=== PATIENT | female | born 1940 | race Caucasian/White ===

== ENCOUNTER 2019-07-01 11:27 | Emergency (ER) | payer OTHER, MEDICARE ==
[2019-07-01] MEDS ORDERED: IPRATROPIUM BROM 0.5MG/2.5ML ONE (13:24)
[2019-07-01] MEDS ORDERED: LEVALBUTEROL 1.25 MG/3 ML NEB ONE (13:24)
[2019-07-01] MEDS ORDERED: METHYLPREDNISOLONE 125 MG INJ ONE (13:24)
--- NOTE | 2019-07-01 15:00 | EDPHYS ---
Physician Documentation [facility] Name: Janak Ventura Age: 79 yrs Sex: Female : 1940 Arrival Date: 07/01/2019 Time: 11:27 Bed 19 Private MD: Celeste Oseguera C ED Physician Ramy De Luna HPI: 07/01 15:05 This 79 yrs old Female presents to ER via Ambulatory with complaints of kb Fever, Bronchitis. 15:05 The patient or guardian reports cough, that is intermittent, described as moderate, kb with productive sputum, flu symptoms, low-grade fever. Onset: The symptoms/episode began/occurred yesterday. Severity of symptoms: At their worst the symptoms were mild, moderate, in the emergency department the symptoms are unchanged. Modifying factors: The symptoms are alleviated by nothing, the symptoms are aggravated by nothing. Associated signs and symptoms: Pertinent positives: fever, Pertinent negatives: chest pain, diarrhea, ear ache, nausea, rhinorrhea, sore throat, vomiting. The patient has not experienced similar symptoms in the past, but family has similar symptoms, spouse. The patient has not recently seen a physician. PT reports spouse was diagnosed with bronchitis 2 days ago and now she has the same symptoms. . Historical: - Allergies: 11:47 Compazine; ss 11:47 Dilaudid; ss 11:47 Flagyl; ss 11:47 Oral steroids; ss - PMHx: 11:47 Hypertension; Hypothyroidism; ss - Immunization history:: Adult Immunizations up to date. - Social history:: Smoking status: Patient uses tobacco products, smokes one-half pack cigarettes per day. - Ebola Screening: : Patient denies exposure to infectious person Patient denies travel to an Ebola-affected area in the 21 days before illness onset. ROS: 15:02 Neck: Negative for injury, pain, and swelling, Cardiovascular: Negative for chest pain, kb palpitations, and edema, Abdomen/GI: Negative for abdominal pain, nausea, vomiting, diarrhea, and constipation, Back: Negative for injury and pain, : Negative for injury, bleeding, discharge, and swelling, MS/Extremity: Negative for injury and deformity, Skin: Negative for injury, rash, and discoloration, Neuro: Negative for headache, weakness, numbness, tingling, and seizure. 15:02 Constitutional: Positive for chills, fever. 15:02 Respiratory: Positive for cough, Negative for dyspnea on exertion, hemoptysis, orthopnea, pleurisy, shortness of breath, sputum production, wheezing. Exam: 15:05 Constitutional: This is a well developed, well nourished patient who is awake, alert, kb and in no acute distress. Head/Face: Normocephalic, atraumatic. Chest/axilla: Normal chest wall appearance and motion. Nontender with no deformity. No lesions are appreciated. Cardiovascular: Regular rate and rhythm with a normal S1 and S2. No gallops, murmurs, or rubs. Normal PMI, no JVD. No pulse deficits. Abdomen/GI: Soft, non-tender, with normal bowel sounds. No distension or tympany. No guarding or rebound. No evidence of tenderness throughout. Back: No spinal tenderness. No costovertebral tenderness. Full range of motion. Skin: Warm, dry with normal turgor. Normal color with no rashes, no lesions, and no evidence of cellulitis. MS/ Extremity: Pulses equal, no cyanosis. Neurovascular intact. Full, normal range of motion. Neuro: Awake and alert, GCS 15, oriented to person, place, time, and situation. Cranial nerves II-XII grossly intact. Motor strength 5/5 in all extremities. Sensory grossly intact. Cerebellar exam normal. Normal gait. 15:05 Respiratory: the patient does not display signs of respiratory distress, Respirations: normal, Breath sounds: rhonchi, that are mild, are scattered, clears after cough. Vital Signs: 11:47 BP 174 / 75; Pulse 100; Resp 18; Temp 98.8(O); Pulse Ox 98% on R/A; Weight 68.95 kg; ss Height 5 ft. 4 in. (162.56 cm); Pain 9/10; 14:00 BP 147 / 70; Pulse 121; Resp 18; Pulse Ox 100% on R/A; mg2 15:08 BP 139 / 85; Pulse 110; Resp 18; Temp 98.5(O); Pulse Ox 100% on R/A; mg2 11:47 Body Mass Index 26.09 (68.95 kg, 162.56 cm) MDM: 13:00 Patient medically screened. [facility] 15:02 Data reviewed: vital signs, nurses notes. Data interpreted: Pulse oximetry: on room air kb is 100 %. Interpretation: normal. Counseling: I had a detailed discussion with the patient and/or guardian regarding: the historical points, exam findings, and any diagnostic results supporting the discharge/admit diagnosis, lab results, radiology results, the need for outpatient follow up, a family practitioner, to return to the emergency department if symptoms worsen or persist or if there are any questions or concerns that arise at home. 07/01 11:51 Order name: Flu; Complete Time: 13:36 kb 07/01 11:47 Order name: Chest Pa And Lat (2 Views) XRAY kb Administered Medications: 13:37 Drug: Xopenex (3) 1.25 mg Route: Inhalation; mg2 14:55 Follow up: Response: No adverse reaction; Marked relief of symptoms mg2 13:37 Drug: AtroVENT Aerosol 0.5 mg Route: Inhalation; mg2 14:55 Follow up: Response: No adverse reaction; Marked relief of symptoms mg2 13:37 Drug: SOLU-Medrol 125 mg Route: IM; Site: right gluteus; mg2 14:55 Follow up: Response: No adverse reaction; Marked relief of symptoms mg2 Disposition: 07/01/19 14:59 Discharged to Home. Impression: Acute bronchitis. - Condition is Stable. - Discharge Instructions: Acute Bronchitis, [id number]. - Prescriptions for Guaifenesin- DM 10-100 mg/5 mL Oral Liquid - take 5 milliliter by ORAL route every 8 hours As needed as needed; 60 milliliter. Albuterol Sulfate 90 mcg/actuation - inhale 1-2 puff by INHALATION route every 4-6 hours; 1 Inhaler. - Medication Reconciliation Form, Thank You Letter, Antibiotic Education, Prescription Opioid Use form. - Follow up: Emergency Department; When: As needed; Reason: Worsening of condition. Follow up: Private Physician; When: 2 - 3 days; Reason: Recheck today's complaints, Continuance of care, Re-evaluation by your physician. Addendum: 07/03/2019 07:52 Co-signature as Attending Physician, Ramy De Luna MD I agree with the assessment and c gilbert plan of care. Signatures: Dispatcher [employer] Melyssa Jaimes, LAUREN-C LAUREN-Ramy Leigh MD MD cha Smirch, Shelby, RN RN ss Gardose, Baljeet, RN RN mg2 Corrections: (The following items were deleted from the chart) 07/01 15:09 14:59 07/01/2019 14:59 Discharged to Home. Impression: Acute bronchitis. Condition is mg2 Stable. Forms are Medication Reconciliation Form, Thank You Letter, Antibiotic Education, Prescription Opioid Use. Follow up: Emergency Department; When: As needed; Reason: Worsening of condition. Follow up: Private Physician; When: 2 - 3 days; Reason: Recheck today's complaints, Continuance of care, Re-evaluation by your physician. kb
--- NOTE | 2019-07-01 15:00 | ER ---
Nurse's Notes [facility] Name: Janak Ventura Age: 79 yrs Sex: Female : 1940 Arrival Date: 07/01/2019 Time: 11:27 Bed 19 Private MD: Celeste Oseguera C Diagnosis: Acute bronchitis Presentation: 07/01 11:46 Presenting complaint: Patient states: cough and congestion that began last night with ss chills. Transition of care: patient was not received from another setting of care. Onset of symptoms was June 30, 2019. Risk Assessment: Do you want to hurt yourself or someone else? Patient reports no desire to harm self or others. Initial Sepsis Screen: Does the patient meet any 2 criteria? No. Patient's initial sepsis screen is negative. Does the patient have a suspected source of infection? No. Patient's initial sepsis screen is negative. Care prior to arrival: None. 11:46 Method Of Arrival: Ambulatory ss 11:46 Acuity: PAIGE 3 ss Historical: - Allergies: 11:47 Compazine; ss 11:47 Dilaudid; ss 11:47 Flagyl; ss 11:47 Oral steroids; ss - PMHx: 11:47 Hypertension; Hypothyroidism; ss - Immunization history:: Adult Immunizations up to date. - Social history:: Smoking status: Patient uses tobacco products, smokes one-half pack cigarettes per day. - Ebola Screening: : Patient denies exposure to infectious person Patient denies travel to an Ebola-affected area in the 21 days before illness onset. Screenin:05 Abuse screen: Denies threats or abuse. Denies injuries from another. Nutritional mg2 screening: No deficits noted. Tuberculosis screening: No symptoms or risk factors identified. Fall Risk None identified. Assessment: 14:01 General: Appears in no apparent distress. comfortable, Behavior is calm, cooperative. mg2 Pain: Denies pain. Neuro: Level of Consciousness is awake, alert, obeys commands, Oriented to person, place, time, situation. Cardiovascular: Capillary refill < 3 seconds Patient's skin is warm and dry. Respiratory: Reports cough that is productive, congestion Airway is patent Respiratory effort is even, unlabored, Respiratory pattern is regular, symmetrical. GI: No signs and/or symptoms were reported involving the gastrointestinal system. : No signs and/or symptoms were reported regarding the genitourinary system. EENT: No signs and/or symptoms were reported regarding the EENT system. Derm: Skin is intact, is healthy with good turgor, Skin is pink, warm \T\ dry. normal. Musculoskeletal: Circulation, motion, and sensation intact. Capillary refill < 3 seconds. 15:08 Reassessment: Patient appears in no apparent distress at this time. Patient states mg2 feeling better. Vital Signs: 11:47 BP 174 / 75; Pulse 100; Resp 18; Temp 98.8(O); Pulse Ox 98% on R/A; Weight 68.95 kg; ss Height 5 ft. 4 in. (162.56 cm); Pain 9/10; 14:00 BP 147 / 70; Pulse 121; Resp 18; Pulse Ox 100% on R/A; mg2 15:08 BP 139 / 85; Pulse 110; Resp 18; Temp 98.5(O); Pulse Ox 100% on R/A; mg2 11:47 Body Mass Index 26.09 (68.95 kg, 162.56 cm) ED Course: 11:27 Patient arrived in ED. as 11:29 Celeste Oseguera MD is Private Physician. as 11:46 Triage completed. ss 11:47 Arm band placed on right wrist. ss 11:51 Melyssa Pablo FNP-C is [facility]. kb 11:51 Ramy De Luna MD is Attending Physician. kb 12:59 Baljeet Crockett RN is Primary Nurse. mg2 14:10 Patient has correct armband on for positive identification. Pulse ox on. NIBP on. Door mg2 closed. 14:10 No provider procedures requiring assistance completed. Patient did not have IV access mg2 during this emergency room visit. 14:29 Chest Pa And Lat (2 Views) XRAY In Process Unspecified. EDMS Administered Medications: 13:37 Drug: Xopenex (3) 1.25 mg Route: Inhalation; mg2 14:55 Follow up: Response: No adverse reaction; Marked relief of symptoms mg2 13:37 Drug: AtroVENT Aerosol 0.5 mg Route: Inhalation; mg2 14:55 Follow up: Response: No adverse reaction; Marked relief of symptoms mg2 13:37 Drug: SOLU-Medrol 125 mg Route: IM; Site: right gluteus; mg2 14:55 Follow up: Response: No adverse reaction; Marked relief of symptoms mg2 Outcome: 14:59 Discharge ordered by MD. cartagena 15:09 Discharged to home ambulatory, with family. mg2 15:09 Condition: stable 15:09 Discharge instructions given to patient, family, Instructed on discharge instructions, follow up and referral plans. medication usage, Demonstrated understanding of instructions, follow-up care, medications, Prescriptions given X 2. 15:09 Patient left the ED. mg2 Signatures: Dispatcher [employer] EDMS Melyssa Pablo, LAUREN-C LAUREN-Emma Lee Shelby, DORENE RN Baljeet Crockett RN RN mg2
[2019-07-01 15:34] VITALS: O2SAT 100
[2019-07-01 15:35] VITALS: BP 139/85; TEMP 98.5
--- NOTE | 2019-07-02 13:06 | RAD REPORT ---
EXAM DESCRIPTION: Bear Hernandez (2 Views)07/01/2019 7:18 pm CLINICAL HISTORY: Cough COMPARISON: 2017 FINDINGS: Calcified granulomas right lung The lungs appear clear of acute infiltrate. The heart is normal size IMPRESSION: No acute abnormalities displayed
== END 2019-07-01 15:09 | disposition home or self-care (01) ==
LOC: ER 11:27
DX: J20.9 Acute bronchitis, unspecified (principal); F17.210 Nicotine dependence, cigarettes, uncomplicated; I10 Essential (primary) hypertension; Z88.5 Allergy status to narcotic agent; Z88.6 Allergy status to analgesic agent; Z88.8 Allergy status to other drugs, medicaments and biological substances
CPT/HCPCS: 87804 ×2; 71046; 96372; 99284; J2930

== ENCOUNTER 2022-01-12 11:19 | Emergency (ER) | payer OTHER, MEDICARE ==
--- OUTSIDE RECORDS SUMMARY | 2022-01-12 11:22 | XMS REPORT | Continuity of Care Document ---
:1940 Author Organization [facility] t Address [address] [place] [address] Care Team Providers Name Role Phone PCP, DOES NOT HAVE A Primary Care Physician Unavailable PHUONG NICOLE Attending Clinician Unavailable Phuong Nicole MD Attending Clinician Payers Payer Name Policy Type Policy Number Effective Date Expiration Date S ourazael MEDICARE PART A \T\ [id number] 2005 B 00:00:00 [facility] [id number] 2021 MEDICARE SUPPLEMENT 00:00:00 Problems Condition Condition Condition Status Onset Resolution Last Treating Co mments Source Name Details Category Date Date Treatment Clinician Date 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 2-18 ity of 00:00: [place] 00 [facility] Allergies, Adverse Reactions, Alerts Allergy Allergy Status Severity Reaction(s) Onset Inactive Treating Comm ents Source Name Type Date Date Clinician Hydromor Propensi Active Other - See 0 Seizure Univers phone ty to comments 2-18 ity of adverse 00:00: [place] reaction 00 [facility] s [place] HYDROMOR DRUG Active Other-Cmnt 0 Univ ers PHONE INGREDI 2-18 ity of 00:00: [place] 00 [facility] Social History Social Habit Start Date Stop Date Quantity Comments Source History of tobacco Cigarette Smoker University of use [facility] Exposure to Not sure University of SARS-CoV-2 (event) [facility] Alcohol intake 2021-12-13 2021-12-13 Lifetime University of 00:00:00 00:00:00 non-drinker [facility] (finding) Branch Cigarettes smoked 2021-11-15 2021-11-15 Univers ity of current (pack per 00:00:00 00:00:00 ) - Reported Branch Cigarette 2021-11-15 2021-11-15 University of pack-years 00:00:00 00:00:00 [facility] Tobacco use and 2021-11-15 2021-11-15 Never used Universit y of exposure 00:00:00 00:00:00 [facility] Sex Ass[birth year] At [birth year] Universit y of 00:00:00 00:00:00 [facility] Smoking Status Start Date Stop Date Source Current every day smoker 2021-11-15 00:00:00 Uni versity of [facility] Medications Ordered Filled Start Stop Current Ordering Indication Dosage Frequency Signature Comments Components Source Medication Medication Date Date Medication? Clinician (SIG) Name Name estradiol Yes Apply to Uni vers (CLIMARA 3-18 skin. ity of TRANSDERMAL 12:41: [place] ) 13 Medical Branch estradioL Yes [id number] 1g Insert 1 g Univers 0.01 % (0.1 2-18 into ity of mg/gram) [facility] Medical cream Branch BYSTOLIC 5 Yes 5mg Take 5 mg Un gavi mg tablet 1-26 by mouth ity of 00:00: every 00 morning. Medical Branch SYNTHROID Yes Univers 100 mcg 1-05 ity of tablet 00:00: [place] 00 Medical Branch clotrimazol 2020-09 Yes APPLY TO Un gavi e-betametha 2-13 THE ity of sone cream 00:[place] ARE[place] THREE Medical TO FOUR Branch TIMES DAILY FOR 7 DAYS Immunizations Ordered Filled Immunization Date Status Comments Sourc e Immunization Name Name SARS-COV-2 COVID-19 2021-05-24 Completed Unive rsity of MODERNA VACCINE 00:00:00 [facility] SARS-COV-2 COVID-19 2020-11-06 Completed Unive rsity of MODERNA VACCINE 00:00:00 [facility] SARS-COV-2 COVID-19 2020-10-10 Completed Unive rsity of MODERNA VACCINE 00:00:00 [facility] Vital Signs Vital Name Observation Time Observation Value Comments Source Systolic blood 2021-12-13 19:14:00 143 mm[Hg] Univer sity of pressure [facility] Diastolic blood 2021-12-13 19:14:00 82 mm[Hg] Unive rsity of pressure [facility] Heart rate 2021-12-13 16:45:00 72 /min [facility] Body temperature 2021-12-13 16:45:00 36.72 [facility] 2021-12-13 16:45:00 18 /min [facility] Body height 2021-12-13 16:45:00 165.1 cm [facility] Body weight 2021-12-13 16:45:00 69.037 kg [facility] BMI 2021-12-13 16:45:00 25.33 kg/m2 [facility] Procedures This patient has no known procedures. Encounters Start End Encounter Admission Attending Care Care Encounter Source Date/Time Date/Time Type Type Clinicians Facility Department ID 2022-01-01 2022-01-01 Outpatient R BILLIE NICOLE [facility] [id number] [facility] 13:15:00 13:15:00 ity [facility] 2021-12-13 2021-12-13 Office Billie Nicole [facility]IDON [facility]AD[facility] [id number] Univers 11:15:00 12:07:13 Visit Phuong ANAYA [id number] it y of WOMEN'S [id number] [facility] [id number] [place] [id number] Branch 2021-12-13 2021-12-13 Outpatient R BILLIE NICOLE [facility] [id number] [facility] 11:15:00 [facility] Results This patient has no known results.
[2022-01-12 14:36] LABS: Urine Blood 2+ (Negative); Urine Glucose Negative (Negative); Urine Protein Negative (Negative); Urine Specific Gravity <=1.005 (1.005-1.030); Urine pH 5.5 (5.0-7.0)
--- NOTE | 2022-01-12 14:43 | ER ---
Nurse's Notes [facility] Name: Janak Ventura Age: 81 yrs Sex: Female : 1940 Arrival Date: 01/12/2022 Time: 11:22 Bed Waiting Private MD: Diagnosis: UTI/ Urinary tract infection, site not specified Presentation: 01/12 14:37 Chief complaint: Patient states: burning and pain with urination x 1 day. Coronavirus jl7 screen: At this time, the client does not indicate any symptoms associated with coronavirus-19. Ebola Screen: No symptoms or risks identified at this time. Initial Sepsis Screen: Does the patient meet any 2 criteria? No. Patient's initial sepsis screen is negative. Does the patient have a suspected source of infection? No. Patient's initial sepsis screen is negative. Risk Assessment: Do you want to hurt yourself or someone else? Patient reports no desire to harm self or others. Onset of symptoms was January 11, 2022. 14:37 Method Of Arrival: Ambulatory [facility] 14:37 Acuity: PAIGE 3 jl7 Triage Assessment: 14:39 General: Appears in no apparent distress. uncomfortable, Behavior is calm, cooperative, jl7 appropriate for age. Pain: Complains of pain in pelvis Pain currently is 10 out of 10 on a pain scale. Neuro: Level of Consciousness is awake, alert, obeys commands, Oriented to person, place, time, situation. Cardiovascular: Patient's skin is warm and dry. Respiratory: Airway is patent Respiratory effort is even, unlabored, Respiratory pattern is regular, symmetrical. : Reports burning with urination. Derm: Skin is pink, warm \T\ dry. Historical: - Allergies: 14:39 Compazine; jl7 14:39 Dilaudid; jl7 14:39 Flagyl; jl7 14:39 Oral steroids; jl7 - Home Meds: 14:39 Bystolic oral [Active]; Synthroid Oral [Active]; jl7 - PMHx: 14:39 Hypertension; Hypothyroidism; jl7 - Immunization history:: Client reports receiving the 2nd dose of the Covid vaccine. - Social history:: Smoking status: Patient reports the use of cigarette tobacco products, smokes one-half pack cigarettes per day. Screenin:59 Abuse screen: Denies threats or abuse. Denies injuries from another. Nutritional jl7 screening: No deficits noted. Tuberculosis screening: No symptoms or risk factors identified. Fall Risk None identified. Vital Signs: 14:37 BP 141 / 77; Pulse 70; Resp 17; Temp 97.6; Pulse Ox 95% ; Weight 67.13 kg; Height 5 ft. jl7 4 in. (162.56 cm); Pain 10/10; 14:37 Body Mass Index 25.40 (67.13 kg, 162.56 cm) jl7 ED Course: 11:22 Patient arrived in ED. as 12:34 Sd Abarca PA is PHCP. [facility] 12:34 Ramy De Luna MD is Attending Physician. jm 14:39 Triage completed. jl7 14:39 Arm band placed on right wrist. jl7 14:40 Urine collected: clean catch specimen, cloudy. jl7 14:42 Urine Culture Sent. zm 14:59 Patient has correct armband on for positive identification. jl7 14:59 No provider procedures requiring assistance completed. Patient did not have IV access jl7 during this emergency room visit. Administered Medications: 14:50 Drug: Rocephin (cefTRIAXone) 1 grams Route: IM; Site: left ventrogluteal; jl7 14:57 Follow up: Response: Medication administered at discharge. jl7 14:57 Drug: [place] (HYDROcodone-acetaminophen) 5 mg-325 mg 1 tabs Route: PO; jl7 14:57 Follow up: Response: No adverse reaction; Medication administered at discharge. jl7 Outcome: 14:40 Discharged to home ambulatory, with family. jl7 14:40 Condition: stable 14:40 Discharge instructions given to patient, family, Instructed on discharge instructions, follow up and referral plans. medication usage, Demonstrated understanding of instructions, follow-up care, medications, Prescriptions given X 2. 14:43 Discharge ordered by . jasmine 15:00 Patient left the ED. [facility] Signatures: Sd Abarca PA PA jmm Martinez, Amelia as Leal, Jahala, DORENE RN jl7 Lynette Leal
--- NOTE | 2022-01-12 14:44 | EDPHYS ---
Physician Documentation [facility] Name: Janak Ventura Age: 81 yrs Sex: Female : 1940 Arrival Date: 01/12/2022 Time: 11:22 Bed Waiting Private MD: PATRICIO Physician Ramy De Luna HPI: 01/12 14:38 This 81 yrs old Female presents to ER via Unassigned with complaints of Urinary Problem.jmm 14:38 The patient presents with urinary symptoms, dysuria. Onset: The symptoms/episode jmm began/occurred gradually, 1 day(s) ago. Modifying factors: The symptoms are alleviated by nothing, the symptoms are aggravated by urinating. Associated signs and symptoms: Pertinent negatives: fever, vomiting. Associated signs and symptoms: Pertinent negatives: fever, vomiting. This is an 81 year old female with a history of chronic uti's that presents to the ED with complaints of painful urination and pelvic pain. Patient denies vomiting but states having some nausea. Denies fever but states having some chills. . Historical: - Allergies: 14:39 Compazine; jl7 14:39 Dilaudid; jl7 14:39 Flagyl; jl7 14:39 Oral steroids; jl7 - Home Meds: 14:39 Bystolic oral [Active]; Synthroid Oral [Active]; jl7 - PMHx: 14:39 Hypertension; Hypothyroidism; jl7 - Immunization history:: Client reports receiving the 2nd dose of the Covid vaccine. - Social history:: Smoking status: Patient reports the use of cigarette tobacco products, smokes one-half pack cigarettes per day. ROS: 14:38 Cardiovascular: Negative for chest pain, palpitations, and edema, Respiratory: Negative jmm for shortness of breath, cough, wheezing, and pleuritic chest pain, MS/Extremity: Negative for injury and deformity. 14:38 Constitutional: Positive for body aches, chills. 14:38 All other systems are negative. Exam: 14:38 Constitutional: This is a well developed, well nourished patient who is awake, alert, jmm and in no acute distress. Head/Face: atraumatic. Eyes: EOMI, no conjunctival erythema appreciated ENT: Moist Mucus Membranes Neck: Trachea midline, Supple Chest/axilla: Normal chest wall appearance and motion. Cardiovascular: Regular rate and rhythm. No edema appreciated Respiratory: Normal respirations, no respiratory distress appreciated Abdomen/GI: Non distended, soft Back: Normal ROM Skin: General appearance color normal MS/ Extremity: Moves all extremities, no obvious deformities appreciated, no edema noted to the lower extremities Neuro: Awake and alert Psych: Behavior is normal, Mood is normal, Patient is cooperative and pleasant Vital Signs: 14:37 BP 141 / 77; Pulse 70; Resp 17; Temp 97.6; Pulse Ox 95% ; Weight 67.13 kg; Height 5 ft. [facility] 4 in. (162.56 cm); Pain 10/10; 14:37 Body Mass Index 25.40 (67.13 kg, 162.56 cm) [facility] MDM: 12:44 Patient medically screened. [facility] 14:38 Data reviewed: vital signs, nurses notes. Counseling: I had a detailed discussion with [facility] the patient and/or guardian regarding: the historical points, exam findings, and any diagnostic results supporting the discharge/admit diagnosis, lab results, the need for outpatient follow up, to return to the emergency department if symptoms worsen or persist or if there are any questions or concerns that arise at home. ED course: Patient is alert and non toxic in appearance in the ED. No signs of sepsis. patient is advised to follow up with pcp/urology for further evaluation. patient otherwise given strict return precautions. patient understood and agrees with the plan of care. . 01/12 12:46 Order name: Urine Culture [facility] 01/12 14:37 Order name: Urine Dipstick-Ancillary; Complete Time: 14:54 EDMS Administered Medications: 14:50 Drug: Rocephin (cefTRIAXone) 1 grams Route: IM; Site: left ventrogluteal; [facility] 14:57 Follow up: Response: Medication administered at discharge. [facility] 14:57 Drug: [place] (HYDROcodone-acetaminophen) 5 mg-325 mg 1 tabs Route: PO; [facility] 14:57 Follow up: Response: No adverse reaction; Medication administered at discharge. [facility] Disposition Summary: 01/12/22 14:43 Discharge Ordered Location: Home [facility] Condition: Stable [facility] Diagnosis - UTI/ Urinary tract infection, site not specified [facility] Followup: [facility] - With: Private Physician - When: 2 - 3 days - Reason: Recheck today's complaints, Continuance of care, Re-evaluation by your physician Discharge Instructions: - Discharge Summary Sheet jmm - Dysuria jmm - Urinary Tract Infection, Adult [facility] Forms: - Medication Reconciliation Form [facility] - Thank You Letter evelyn - Antibiotic Education [facility] - Prescription Opioid Use [facility] Prescriptions: - cefpodoxime 200 mg Oral Tablet - take 1 tablet by ORAL route every 12 hours for 10 days with food; 20 tablet; jmm Refills: 0, Product Selection Permitted - Ultracet 37.5-325 mg Oral Tablet - take 1 tablet by ORAL route every 6 hours - for up to 5 days; do not exceed 8 jmm tablets per day.; 12 tablet; Refills: 0, Product Selection Permitted Addendum: 01/17/2022 07:42 Co-signature as Attending Physician, Ramy De Luna MD I agree with the assessment and c gilbert plan of care. 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
[2022-01-12] MEDS ORDERED: LIDOCAINE 1% MPF 2 ML AMPULE ONE (14:50)
[2022-01-12] MEDS ORDERED: CEFTRIAXONE 1000 MG/VIAL ONE (14:50)
[2022-01-12] MEDS ORDERED: HYDROCODONE/APAP 5/325 MG TAB ONE (14:52)
[2022-01-12 16:27] VITALS: BP 141/77; TEMP 97.6; O2SAT 95
== END 2022-01-12 15:00 | disposition home or self-care (01) ==
LOC: ER 11:19
DX: N39.0 Urinary tract infection, site not specified (principal); E03.9 Hypothyroidism, unspecified; I10 Essential (primary) hypertension; F17.210 Nicotine dependence, cigarettes, uncomplicated; Z88.8 Allergy status to other drugs, medicaments and biological substances
CPT/HCPCS: 81003; 87086; 87088; 96372; 99283

== ENCOUNTER 2023-08-05 06:30 | Day surgery (SDC) | payer OTHER, MEDICARE ==
[2023-08-04 15:45] LABS: Absolute Lymphocytes (CBC) 2.6 K/uL (0.7-4.9); Hematocrit 44.9 % (36.0-45.0); Lymphocytes % 33.6 % (15.3-44.8); MCV 94.5 fL (80-100); MPV 7.9 fL (7.6-11.3); Platelets 234 thou/uL (152-406); RBC Red Blood Cell Count 4.75 M/uL (3.86-4.86)
[2023-08-04 15:46] LABS: Protime INR 0.94
[2023-08-04 15:48] LABS: Potassium 3.6 mEq/L (3.5-5.1)
--- NOTE | 2023-08-04 16:07 | RAD REPORT ---
EXAM DESCRIPTION: RAD - Chest Pa And Lat (2 Views) - 08/04/2023 4:00 pm CLINICAL HISTORY: pre op left heart cath Chest pain. COMPARISON: Abdomen 1 View (KUB) dated 02/11/2022; Chest Pa And Lat (2 Views) dated 07/01/2019; Chest Pa And Lat (2 Views) dated 12/09/2016; CHEST PA AND LAT 2 VIEW dated 02/09/2013 TECHNIQUE: PA and lateral views of the chest were obtained. FINDINGS: The lungs are hyperexpanded compatible with COPD. The heart is upper limit of normal in si ze. No fracture or aggressive bony process. Small hiatal hernia. IMPRESSION: COPD without acute process identified.
[2023-08-05] MEDS ORDERED: HEPA 1000U/500MLS 2,000 UNIT/1,000 ML BAG IV ONE (06:52)
[2023-08-05] MEDS ORDERED: LIDOCAINE 1% 20 ML MDV ONE (06:53)
[2023-08-05] MEDS ORDERED: FENTANYL CITR 100 MCG/2 ML ONE (06:53)
[2023-08-05] MEDS ORDERED: MIDAZOLAM HCL 2 MG/2 ML INJ ONE (06:53)
[2023-08-05] MEDS ORDERED: CLOPIDOGREL 75 MG TABLET ONE (06:54)
[2023-08-05] MEDS ORDERED: HEPARIN 5000 UNIT/ML 1 ML VIAL ONE (06:54)
[2023-08-05] MEDS ORDERED: VERAPAMIL HCL 10 MG/4 ML VIAL IV ONE (06:54)
[2023-08-05] MEDS ORDERED: HEPARIN 10,000 UNIT/10 ML VIAL IV ONE (06:55)
[2023-08-05] MEDS ORDERED: ASPIRIN 325 MG TAB ONE (06:55)
[2023-08-05] MEDS ORDERED: ATROPINE SULF 1 MG/10 ML SYR IV ONE (06:55)
[2023-08-05] MEDS ORDERED: TICAGRELOR 90 MG TABLET PO ONE (06:55)
[2023-08-05] MEDS ORDERED: NA CHLORIDE 0.9% 500 ML ONE (07:01)
--- NOTE | 2023-08-05 08:58 | OP ---
Date of Procedure: 08/05/2023 Surgeon: ERVIN RIVERA Procedures Performed: 1.Selective coronary angiogram. 2.Left heart catheterization. Indication: Unstable angina. Access: Right radial artery, 6-Prydeinig, closed with TR band. Complications: None. Bleeding: Less than 20 mL. Anesthesia: Total sedation time was 30 minutes. Description Of Procedure: After risks, benefits, and alternatives were explained, the patient agreed to proceed and signed informal consent. The patient was brought into the cardiac catheterization la boratory, prepped and draped in the usual sterile fashion. Then, I accessed right radial artery usin g pediatric micropuncture kit, placed a 6-Prydeinig Slender sheath and took a 5-Prydeinig [place] 4.0 cathete r over a J-wire into the aortic root, engaged the left main and took standard views and then engaged the RCA using same catheter and took standard views and the catheter was pushed over the wire into th e LV, measured the LVEDP and pullback did not record any gradient. I removed the catheter and the eat and placed TR band with good hemostasis. Findings: 1.Left main; large and normal. 2.LAD; moderate in size, proximal segment has a focal 20%, then in the mid to distal there are 2 estrada dem lesions ranging between 30% to 40%. Rest of the LAD is normal. Normal diagonal branches. 3.Left circumflex; moderate in size with luminal irregularities. 4.RCA; large and dominant, mid 40% and then widely patent stent. Normal PDA and PLP. 5.Normal LVEDP between 5 and 10 mmHg. 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 2.Normal LVEDP. Recommendation: Medical management. SR/MODL Voice ID: [id number] Report ID: [id number]
[2023-08-05 10:29] VITALS: BP 155/74; O2SAT 96
== END 2023-08-05 09:50 | disposition home or self-care (01) ==
LOC: CCL 06:30
PROVIDERS: ATTEND Internal Medicine
DX: I25.110 Atherosclerotic heart disease of native coronary artery with unstable angina pectoris (principal); I34.0 Nonrheumatic mitral (valve) insufficiency; I11.0 Hypertensive heart disease with heart failure; I50.32 Chronic diastolic (congestive) heart failure; E78.2 Mixed hyperlipidemia; Z95.5 Presence of coronary angioplasty implant and graft; F17.210 Nicotine dependence, cigarettes, uncomplicated; Z79.899 Other long term (current) drug therapy; Z88.5 Allergy status to narcotic agent; Z88.8 Allergy status to other drugs, medicaments and biological substances; Z82.49 Family history of ischemic heart disease and other diseases of the circulatory system
CPT/HCPCS: 85025; 80048; 36415; 83721; 85610; 85730; 71046; 93458; 76937; C1893; Q9966; J1644; J2001; J2250; J3010; J7040; J0461